=== PATIENT | male | born 1995 | race Caucasian/White ===

== ENCOUNTER 2017-06-08 19:04 | Emergency (ER) | payer OTHER ==
[~2017-06-08 19:04] MED LIST: CODACE30 PO; DOXY100 PO; HYDACE5 PO; IBUP600 PO; NAPR500 PO; OXYACE5T PO; PROM25 PO; RXCODACET PO; RXOXYACE PO; RXTRAM50 PO; SULTRIDS PO; TRAM50 PO
== END 2017-06-08 20:22 | disposition left against medical advice (07) ==
LOC: ER 19:04
DX: Z53.21 Procedure and treatment not carried out due to patient leaving prior to being seen by health care provider (principal)

== ENCOUNTER 2018-11-30 21:55 | Emergency (ER) | payer OTHER ==
[~2018-11-30] VITALS: Ht 172.7 cm; Wt 79.8 kg
== END 2018-11-30 23:55 | disposition home or self-care (01) ==
LOC: ER 21:55
DX: S01.112A Laceration without foreign body of left eyelid and periocular area, initial encounter (principal); F10.129 Alcohol abuse with intoxication, unspecified; F17.210 Nicotine dependence, cigarettes, uncomplicated; Z88.0 Allergy status to penicillin; W26.9XXA Contact with unspecified sharp object(s), initial encounter
CPT/HCPCS: 12011; 70450; 71045; 71260; 72125; 74177; 90471; 90714; 96374-59; 99284-25; J2270; L0160; Q9967

== ENCOUNTER → 2019-01-02 | Outpatient (CLI) | payer OTHER | END | disposition home or self-care (01) | LOC: LAB EV 16:17 → LAB SHORT 16:17 | DX: J02.9 Acute pharyngitis, unspecified (principal) | CPT/HCPCS: 87081 ==